=== PATIENT | female | born 1980 | race Hispanic/Latino ===

== ENCOUNTER 2017-10-11 16:17 | Emergency (ER) | payer OTHER ==
[2017-10-11] MEDS ORDERED: Sodium Chloride 0.9% 1,000 ML IV ONE (17:30)
[2017-10-11 18:04] LABS: BASO % 0.5 % (0.0-2.0); EOS % 0.4 % (0.0-4.0); LYMPH # 1.2 K/uL (1.0-4.3); LYMPH % 28.6 % (20.0-40.0); MEAN CELL VOLUME 95.7 fL (81.0-99.0); MEAN CORPUSCULAR HEMOGLOBIN 32.6 pg (27.0-31.0); MEAN PLATELET VOLUME 7.7 fL (7.2-11.7); MONO # 0.9 K/uL (0.0-0.8); MONO % 20.4 % (0.0-10.0); NEUT # 2.1 K/uL (1.8-7.0); NEUT % 50.1 % (50.0-75.0); NRBC % 0.1 % (0.0-2.0); PLATELET COUNT 339 K/uL (130-400); RBC 3.99 Mil/uL (3.80-5.20); WHITE BLOOD COUNT 4.2 K/uL (4.8-10.8)
[2017-10-11 18:06] LABS: HCG,QUALITATIVE URINE NEGATIVE (NEGATIVE)
[2017-10-11 18:13] LABS: SQUAMOUS EPITHIAL < 1 /hpf (0-5); URINE BACTERIA OCC (<OCC); URINE BILIRUBIN NEGATIVE (NEGATIVE); URINE BLOOD NEGATIVE (NEGATIVE); URINE CLARITY Clear (Clear); URINE COLOR Yellow (YELLOW); URINE GLUCOSE (UA) NORMAL (Normal); URINE LEUKOCYTE ESTERASE NEG Leu/uL (Negative); URINE PROTEIN NEGATIVE (NEGATIVE); URINE UROBILINOGEN NORMAL mg/dL (0.2-1.0)
--- NOTE | 2017-10-11 18:14 | RAD ---
HISTORY: Fell, right sided pain COMPARISON: No prior. FINDINGS: LUNGS: No active pulmonary disease. PLEURA: No significant pleural effusion identified, no pneumothorax apparent. CARDIOVASCULAR: Normal. OSSEOUS STRUCTURES: No significant abnormalities. VISUALIZED UPPER ABDOMEN: Normal. OTHER FINDINGS: None. IMPRESSION: No active disease.
[2017-10-11 18:20] LABS: BARBITURATES, UR NEGATIVE (NEGATIVE); BENZODIAZEPINES, UR NEGATIVE (NEGATIVE); OPIATES, UR NEGATIVE (NEGATIVE); PHENCYCLIDINE, UR NEGATIVE (NEGATIVE)
[2017-10-11 18:49] LABS: ALB/GLOB RATIO 1.3 (1.0-2.1); ALBUMIN 4.7 g/dL (3.5-5.0); ALT/SGPT 78 U/L (9-52); AST/SGOT 64 U/L (14-36); BLOOD UREA NITROGEN 8 mg/dL (7-17); CALCIUM 10.3 mg/dl (8.6-10.4); GFR AFRICAN-AMERICAN > 60; GFR NON-AFRICAN AMERICAN > 60; LIPASE 494 U/L (23-300)
--- NOTE | 2017-10-11 19:36 | C.PDOC ---
Time Seen by Provider: 10/11/17 17:13 Chief Complaint (Nursing): Substance Abuse History Per: Patient Onset/Duration Of Symptoms: Days (about 5 days) Current Symptoms Are (Timing): Still Present Suicide/Self Injury Attempted (Context): None Modifying Factor(s): Alcohol Severity: Moderate Associated Symptoms: denies: Suicidal Thoughts, Suicidal Plan Additional History Per: Prior Records Past Medical History Reviewed: Historical Data, Nursing Documentation, Vital Signs Vital Signs: Last Vital Signs Temp 98.8 F 10/11/17 16:26 Pulse 117 H 10/11/17 16:26 Resp 15 10/11/17 16:26 BP 136/87 10/11/17 16:26 Pulse Ox 97 10/11/17 16:26 - Medical History Other PMH: Eating disorder. Alcohol abuse. Surgical History: Tonsillectomy Family History: States: Unknown Family Hx - Social History Hx Alcohol Use: Yes Hx Substance Use: No - Immunization History Hx Tetanus Toxoid Vaccination: No Hx Influenza Vaccination: No Hx Pneumococcal Vaccination: No Review Of Systems Except As Marked, All Systems Reviewed And Found Negative. Constitutional: Negative for: Fever Cardiovascular: Positive for: Chest Pain (right side, pt states she fell and injured that area yesterday) Respiratory: Negative for: Shortness of Breath, Hemoptysis Gastrointestinal: Positive for: Vomiting (self-induced after binge eating). Negative for: Hematemesis Musculoskeletal: Negative for: Neck Pain Neurological: Positive for: Headache (very mild, pt states she hit her head when she fell yesterday). Negative for: Weakness, Numbness, Seizures, Altered Mental Status Physical Exam - Physical Exam Appears: Non-toxic, No Acute Distress Skin: Normal Color, Warm, Dry, No Rash Head: Atraumatic, Normacephalic Eye(s): bilateral: Normal Inspection, PERRL, EOMI Neck: Normal ROM, No Midline Cervical Tenderness, No Step Off Deformity, Supple Chest: Symmetrical, No Deformity, Tenderness (right side), No Ecchymosis, No Subcutaneous Emphysema Cardiovascular: Rhythm Regular Respiratory: Normal Breath Sounds, No Accessory Muscle Use Gastrointestinal/Abdominal: Soft, No Distention Back: No CVA Tenderness Extremity: Normal ROM, No Deformity Neurological/Psych: Oriented x3, Normal Motor, Normal Sensation, Other (Pt is not tremulous) ED Course And Treatment - Laboratory Results Result Diagrams: 10/11/17 17:59 10/11/17 17:59 Urine POC: Negative O2 Sat by Pulse Oximetry: 97 Pulse Ox Interpretation: Normal - Radiology CXR: Viewed By Me, Read By Radiologist CXR Interpretation: Yes: No Acute Disease Progress Note: Pt feels much better and wants to go home. No abdominal pain or tenderness. No signs of withdrawal. Reassessment Condition: Improved Progress - Interventions Interventions:: Observation, Intravenous fluid - Medications Administered Oral: H-2 charo Intravenous: Antiemetic - Data Reviewed Data Reviewed: Lab, Diagnostic imaging, Old records - Patient Status Patient status: Mostly improved - Continuity of Care Discussed patient case with:: Patient, Family-HIPPA compliant, ED Nurse - Patient Plan Patient Plan: Discharge, F/U with PCP Disposition Counseled Patient/Family Regarding: Studies Performed, Diagnosis, Need For Followup, Rx Given - Disposition Referrals: Tico Santoyo [Medical Doctor] - Disposition: HOME/ ROUTINE Disposition Time: 19:40 Condition: IMPROVED Additional Instructions: Avoid alcohol. Follow up with your doctor. Return to the ER if you develop shaking, seizure, palpitations, abdominal pain, worsening of symptoms or if you have any other concerns. Prescriptions: chlordiazePOXIDE [Chlordiazepoxide HCl] 25 mg PO BID PRN #3 cap PRN Reason: Symptoms Of Alcohol Withdrawl Instructions: Alcohol Abuse and Alcoholism (DC) - Clinical Impression Clinical Impression: Alcohol abuse
[2017-10-11 19:52] VITALS: BP 136/72; PULSE 78; RESP 18; TEMP 98; O2SAT 98
[2017-10-11 19:59] LABS: BASOPHIL 1 % (0-2); EOSINOPHIL 1 % (0-4); LYMPHOCYTE 25 % (20-40); MONOCYTE 15 % (0-10); NEUTROPHIL 52 % (50-75); REACTIVE LYMPHOCYTES 6 % (0-0); TOTAL CELLS COUNTED 100
[2017-10-11 20:00] LABS: ANISOCYTOSIS SLIGHT; PLATELET ESTIMATE NORMAL (NORMAL)
== END 2017-10-11 19:52 | disposition home or self-care (01) ==
LOC: C.ER 16:17
DX: F10.10 Alcohol abuse, uncomplicated (principal)
CPT/HCPCS: 71045; 80053; 80320; 80324; 80345; 80346; 80349; 80353; 80358; 80361; 81001; 83690; 83735; 83992; 84100; 84703; 85025; 96374; 99284; J2765; J7040